=== PATIENT | male | born 1950 | race Caucasian/White ===

== ENCOUNTER 2016-05-18 08:19 | Day surgery (SDC) | payer OTHER ==
[~2016-05-18] VITALS: Ht 188 cm; Wt 94.3 kg
[~2016-05-18 08:19] MED LIST: 0.9% Sodium Chloride 1,000 ML IV SCH; Sodium Chloride LOK Flush 10 mL Syringe IV PRN; TERA10CA5 PO; TRAZ-115 PO; fentaNYL-PF 50 mCg/mL 2 mL Inj IVPUSH PRN
[2016-05-18 09:33] VITALS: BP 135/82; PULSE 80; RESP 16; O2SAT 97
[2016-05-18 10:35] VITALS: BP 119/72; PULSE 67; RESP 12; O2SAT 93
[2016-05-18 10:43] VITALS: BP 111/71; PULSE 62; RESP 11; O2SAT 94
[2016-05-18 10:53] VITALS: BP 118/73; PULSE 66; RESP 12; O2SAT 94
[2016-05-18 11:00] VITALS: BP 123/79; PULSE 68; RESP 14; O2SAT 96
--- NOTE | 2016-05-18 11:31 | ENDO ---
[address] [address] ENDOSCOPY PROCEDURE PATIENT: SHAVON YATES : 1950 MR#: [id number] ADMIT: 05/18/2016 JOB ID: [id number] PROCEDURE: Colonoscopy. INDICATION: Patient with a submucosal lesion in the transverse colon that was seen last year. He has been brought back for surveillance of this submucosal lesion. He has had CT scan imaging and this lesion was not identified. ANESTHESIA: The patient's ASA classification is two. Mallampati score is two. MEDICATIONS: 1. Versed 6 mg. 2. Fentanyl 125 mcg. INSTRUMENT USED: PCF H 180 AL. PREPARATION QUALITY: Good. PROCEDURE DETAILS: After informed consent was obtained, the patient was brought into the GI suite, where he was placed on oxygen via nasal cannula and monitored with continuous pulse oximeter, telemetry, and blood pressure monitoring. A time-out was performed, then he was placed in the left lateral decubitus position and medications were administered for sedation. Digital rectal exam with palpation of the prostate was performed which unremarkable. The colonoscope was then inserted into the rectum and advanced under direct visualization to the cecum, which was identified by the presence of the ileocecal valve and the appendiceal orifice. Once the cecum was reached, the colonoscope was withdrawn back into the rectum as the mucosa and lumen were examined. In the rectum, retroflexion was performed. Following retroflexion, the remaining air in the rectum was suctioned and the procedure was completed. FINDINGS: Between the previously tattooed sites in the transverse colon we were able to identify the 8-9 mm submucosal lesion which was firm when probed with biopsy forceps. The appearance of this lesion did not appear to have changed in size from prior colonoscopies. Biopsies were not performed. The remainder of the colon exam was otherwise unremarkable. IMPRESSION: Firm submucosal transverse lesion. RECOMMENDATIONS: Recommend continued surveillance with colonoscopy. Recommend repeat colonoscopy in one year to 18 months. COMPLICATIONS: None. ESTIMATED BLOOD LOSS: Zero. MTDD
== END 2016-05-18 23:59 | disposition home or self-care (01) ==
LOC: END 08:19
PROVIDERS: ATTEND Internal Medicine Gastroenterology
DX: Z12.11 Encounter for screening for malignant neoplasm of colon (principal); K63.9 Disease of intestine, unspecified; I48.91 Unspecified atrial fibrillation; R00.2 Palpitations; N40.1 Benign prostatic hyperplasia with lower urinary tract symptoms; N13.9 Obstructive and reflux uropathy, unspecified
CPT/HCPCS: G0105; G0500; J2250; J3010; J7030